=== PATIENT | male | born 1990 | race Caucasian/White ===

== ENCOUNTER 2017-10-12 11:25 | Emergency (ER) | payer BC ==
[~2017-10-12] VITALS: Ht 193 cm; Wt 131.5 kg
[2017-10-12] MEDS ORDERED: CELEXA10 MG PO (11:35)
[2017-10-12 11:53] LABS: ABSOLUTE BASOPHILS 0.1 thou/uL (0.0-0.2); ABSOLUTE EOSINOPHILS 0.2 thou/uL (0.0-0.7); ABSOLUTE LYMPHOCYTES 2.1 thou/uL (0.8-5.3); ABSOLUTE NEUTROPHILS 7.1 thou/uL (1.6-8.1); BASOPHILS 0.5 %; EOSINOPHILS 1.8 %; HEMATOCRIT 49.4 % (42.0-52.0); HEMOGLOBIN 16.8 gm/dL (14.0-18.0); LYMPHOCYTES 19.9 %; MCH 30.4 pg (26.0-34.0); MCHC 34.1 g/dL (28.0-37.0); MCV 89.1 fL (80.0-100.0); MONOCYTES 9.5 %; MPV 7.1 fl. (7.2-11.1); NUCLEATED RBCS 0 /100WBC; PLATELET COUNT* 262 thou/uL (150-400); POLYS 68.3 %; RBC 5.54 mil/uL (4.50-6.00); RDW-CV 12.3 % (10.5-14.5); WBC 10.4 thou/uL (4.0-11.0)
[2017-10-12 12:01] LABS: CALCIUM 9.3 mg/dL (8.5-10.1); POTASSIUM 4.1 mmol/L (3.5-5.1)
[2017-10-12 12:05] LABS: ALBUMIN 3.9 g/dL (3.4-5.0); TOTAL BILIRUBIN 0.6 mg/dL (<0.1-1.0); TOTAL PROTEIN 8.2 g/dL (6.4-8.2)
[2017-10-12] MEDS ORDERED: AUGMENTIN 875-1 EACH PO (12:18)
[2017-10-12 12:27] VITALS: BP 155/92
== END 2017-10-12 12:28 | disposition home or self-care (01) ==
LOC: M.ERS 11:25
PROVIDERS: Nurse Practitioner Family
DX: J03.90 Acute tonsillitis, unspecified (principal); A60.00 Herpesviral infection of urogenital system, unspecified